=== PATIENT | male | born 1955 | race Caucasian/White ===

== ENCOUNTER 2022-10-26 15:58 | Inpatient (IN) | payer OTHER ==
[~2022-10-26] VITALS: Ht 167.6 cm; Wt 74.4 kg
[~2022-10-26 15:58] MED LIST: ASPI-1822 PO; ATOR20TA PO; FAMO-90 PO; LOSA100T2 PO
[2022-10-26 15:59] VITALS: BP 171/105
--- NOTE | 2022-10-26 16:08 | NUR ---
PT AMB TO BED 4.
[2022-10-26 16:31] LABS: APPEARANCE,URINE CLEAR (CLEAR); BILIRUBIN,URINE NEGATIVE (NEGATIVE); BLOOD, URINE 3+ (NEGATIVE); COLOR,URINE YELLOW (YELLOW); LEUKOCYTE ESTERASE ,URINE 1+ (NEGATIVE); NITRITE, URINE NEGATIVE (NEGATIVE); UGLUCOSE 3+ (NEGATIVE)
[2022-10-26] MEDS ORDERED: KETOROLAC 30 MG/ML VIAL IVP ONE (16:35)
[2022-10-26] MEDS ORDERED: NACL 0.9% 1,000 ML IV ONE (16:35)
--- NOTE | 2022-10-26 16:55 | NUR ---
pt to ct
--- NOTE | 2022-10-26 16:55 | NUR ---
medicated for left lower back pain, o2 sat 98 ra, sr up times 2
[2022-10-26 16:57] LABS: HEMATOCRIT 40.1 % (36-52); HEMOGLOBIN 13.5 g/dL (12.0-18.0); MEAN CORPUSCULAR HEMOGLOBIN 29 pg (27-31); MEAN CORPUSCULAR HGB CONC 34 g/dL (33-37); MEAN CORPUSCULAR VOLUME 85.9 fL (80-94); PLATELET COUNT (AUTO) 202 K/uL (140-450); RED BLOOD CELL COUNT(AUTO) 4.67 MIL/uL (4.20-6.10); RED CELL DISTRIBUTION WIDTH 13.4 % (11.6-13.7); WHITE BLOOD COUNT (AUTO) 13.5 K/uL (4.8-10.8)
[2022-10-26 17:03] LABS: RBC,URINE >100 /HPF (0-5); WBC,URINE 80-100 /HPF (0-5)
[2022-10-26 17:04] LABS: TRICHOMONAS,URINE None Seen /HPF (None Seen); YEAST,URINE None Seen /HPF (None Seen)
[2022-10-26 17:11] LABS: ALBUMIN 3.9 g/dL (3.4-5.0); ANION GAP 10.7 (8-16); CARBON DIOXIDE 28.3 mmol/L (21-32); CREATININE 2.4 mg/dL (0.6-1.3); TOTAL BILIRUBIN 0.3 mg/dL (0.0-1.0)
[2022-10-26] MEDS ORDERED: ATOR40TA PO (17:39)
[2022-10-26] MEDS ORDERED: TAMS0.4C96 PO (17:39)
[2022-10-26] MEDS ORDERED: FENO145T PO (17:40)
[2022-10-26] MEDS ORDERED: ERGO-30 PO (17:43)
[2022-10-26] MEDS ORDERED: SYN.05 PO (17:43)
[2022-10-26] MEDS ORDERED: DOXA2TAB1 PO (17:43)
[2022-10-26] MEDS ORDERED: GLIM2TAB PO ×2 (17:45→17:46)
[2022-10-26] MEDS ORDERED: cefTRIAXone 1,000 MG VIAL ONE (17:48)
[2022-10-26 18:15] LABS: BASOPHILS % (MANUAL) 0 % (0-2); EOSINOPHILS % (MANUAL) 2 % (0-4); LYMPHOCYTES % (MANUAL) 7 % (20-46)
[2022-10-26 18:16] LABS: MONOCYTES % (MANUAL) 3 % (5-12)
[2022-10-26] MEDS ORDERED: ONDANSETRON 4 MG/2 ML VIAL IVP PRN (19:05)
[2022-10-26] MEDS ORDERED: ACETAMINOPHEN 325 MG TAB PO PRN (19:05)
[2022-10-26] MEDS ORDERED: LORazepam 1 MG TAB PO PRN (19:05)
[2022-10-26] MEDS ORDERED: ZOLPIDEM 5 MG TAB PO PRN (19:05)
[2022-10-26] MEDS: NACL 0.9% 1,000 ML IV SCH (19:45)
--- NOTE | 2022-10-26 19:54 | NUR ---
PT IS RESTING IN BED . TELE HOLD WITH BED ASSIG PENDING TO REPORT OFF TO [facility] NURSE FOR TRANSFER. PT IS ON BEDSIDE NATIONAL STORMWATER LEADER A&OX4. DENIES PAIN CP OR SOB. HOB IS ELEVATED RESP EVEN AND UNLABORED. VS WNL. BED AT LOWEST POSITION SIDE RAILS UP X2
--- NOTE | 2022-10-26 20:20 | NUR ---
Patient will be admitted to care of DR GRAY. Admited toTELE. Will go to [id number]. Belongings list completed. Report to CHASTITY MICHELLE.
[2022-10-26 20:38] VITALS: BP 155/77
--- NOTE | 2022-10-26 21:16 | NUR ---
The patient's care was reviewed and supervised by Piedad Huerta RN, RN.
[2022-10-27] MEDS: MORPHINE SULFATE 4 MG/ML SYR IVP PRN ×2 (01:49→19:54)
[2022-10-27] MEDS: NACL 0.9% 1,000 ML IV SCH ×3 (02:45→23:37)
[2022-10-27 04:19] VITALS: BP 136/84
--- NOTE | 2022-10-27 04:39 | NUR ---
rn notes patient remains on room air, no sob noted, patient states that pain is under control with morphine at this time. Admitted for obstructed kidney stone. NPO at this time, 125 mL per hour NS is running. Rocephin and toradol given in the ER, morphine 4mg given one time for pain in the floor. Pending admission orders at this time.
[2022-10-27 06:23] LABS: ANION GAP 12.8 (8-16); CARBON DIOXIDE 26.3 mmol/L (21-32); CREATININE 2.7 mg/dL (0.6-1.3); POTASSIUM 5.1 mmol/L (3.5-5.1)
[2022-10-27 06:58] LABS: BASOPHILS % (AUTO) 0.3 % (0.0-2.0); EOSINOPHILS # (AUTO) 0.1 K/uL (0-0.4); EOSINOPHILS % (AUTO) 0.9 % (0.0-4.0); HEMATOCRIT 38.1 % (36-52); HEMOGLOBIN 12.8 g/dL (12.0-18.0); LYMPHOCYTES # (AUTO) 1.6 K/uL (2.0-11.5); LYMPHOCYTES % (AUTO) 11.4 % (20.5-51.1); MEAN CORPUSCULAR HEMOGLOBIN 29 pg (27-31); MEAN CORPUSCULAR HGB CONC 34 g/dL (33-37); MEAN CORPUSCULAR VOLUME 86.3 fL (80-94); MONOCYTES # (AUTO) 1.2 K/uL (0.8-1.0); MONOCYTES % (AUTO) 8.6 % (1.7-9.3); NEUTROPHILS % (AUTO) 78.8 % (42.2-75.2); PLATELET COUNT (AUTO) 191 K/uL (140-450); RED BLOOD CELL COUNT(AUTO) 4.42 MIL/uL (4.20-6.10); RED CELL DISTRIBUTION WIDTH 13.5 % (11.6-13.7); WHITE BLOOD COUNT (AUTO) 13.9 K/uL (4.8-10.8)
--- NOTE | 2022-10-27 07:20 | NUR ---
RECEIVED REPORT FROM NIGHTSOKFT NURSE CHASTITY FOR CONTINUITY OF CARE. PT IN STABLE CONDITION.
[2022-10-27 08:00] VITALS: BP 167/90
[2022-10-27] MEDS: DOCUSATE SODIUM 100 MG GELCAP PO SCH (08:20)
--- NOTE | 2022-10-27 08:36 | NUR ---
NURSING AIDE FOR DR. ORTIZ CALLED, STATED SHE SPOKE WITH THE PT AND HIS FAMILY, AND HE IS CLEARED FOR DISCHARGE, NO SURGICAL INTERVENTION NEEDED AND PRESCRIBED FLOMAX. PT IS TO SEE HIS RADIATION ONCOLOGY NURSE OUTPATIENT. Addendum: 10/27/22 at 4886 by Ruiz Ferrell RN NOTIFIED DR. FELICIANO OF UPDATE.
--- NOTE | 2022-10-27 09:25 | NUR ---
NOTIFIED DR. FELICIANO ABOUT PT'S SBP 167. NEW ORDER FOR HYDRALAZINE PO ORDERED.
[2022-10-27] MEDS: HYDROcodone/APAP 5/325 MG 1 TAB TAB PO PRN ×2 (10:41→17:29)
--- NOTE | 2022-10-27 10:41 | NUR ---
MEDICATED PT WITH PRN NORCO FOR LEFT FLANK PAIN 02/01.
--- NOTE | 2022-10-27 10:50 | NUR ---
DR. BARAKAT IN TO SEE PT. HE RECOMMENDED KEEPING PT FOR OBSERVATION UNTIL CREATININE LEVEL DECREASES. CHANGED FLUIDS NS AT 80ML/HR. HE STATED HE WILL UPDATE DR. FELICIANO. PT NOW ON RENAL DIET. Addendum: 10/27/22 at 1111 by Ruiz Ferrell RN PT NOW ON LOW SODIUM CCHO DIET.
[2022-10-27] MEDS ORDERED: DEXTROSE 50% 50 ML SYR IVP PRN (11:15)
[2022-10-27] MEDS: BLOOD GLUCOSE MONITORING 1 DEV DEV FS SCH ×3 (11:30→20:56)
[2022-10-27 12:00] VITALS: BP 155/92
[2022-10-27] MEDS: hydrALAZINE 25 MG TAB PO SCH ×2 (12:34→16:45)
[2022-10-27 16:00] VITALS: BP 156/80
--- NOTE | 2022-10-27 16:01 | NUR ---
PATIENT HAS BEEN SCREENED AND CATEGORIZED MODERATE NUTRITION RISK. PATIENT WILL BE SEEN WITHIN 3-5 DAYS OF ADMISSION. REVIEWED BY RONALD MIDDLETON RD
--- NOTE | 2022-10-27 16:30 | NUR ---
SMALL WHITE STONE NOTED IN STRAINER OF URINAL, URINE WAS DARK YELLOW/BROWN IN COLOR. PT DENIED PAINFUL URINATION. NOTIFIED DR. BARAKAT.
--- NOTE | 2022-10-27 16:34 | NUR ---
PER DR. BARAKAT, RENAL STONE POSSIBLY PASSED, POSSIBLE CLEARANCE FOR DISCHARGE TOMORROW.
--- NOTE | 2022-10-27 17:29 | NUR ---
PT ENDORSED LEFT FLANK PAIN 02/01. MEDICATED WITH PRN NORCO.
--- NOTE | 2022-10-27 19:09 | NUR ---
ENDORSED PT TO NIGHTSHIFT NURSE MICHELLE FOR CONTINUITY OF CARE. PT IN STABLE CONDITION.
--- NOTE | 2022-10-27 19:25 | NUR ---
RECEIVED PT ON BED, AAOX4, ABLE TO MAKE NEEDS KNOWN, COMPLAINING OF BACK PAIN, WILL MEDICATE PRN, IVF INFUSING WELL, PLAN OF CARE DISCUSSED, CALL LIGHT WITHIN REACH.
[2022-10-27 20:00] VITALS: BP 148/85
[2022-10-27] MEDS: cefTRIAXone 2,000 MG in DEXTROSE 5% 100 ML IV SCH (20:53)
[2022-10-28] VITALS: BP 116/96
--- NOTE | 2022-10-28 02:30 | NUR ---
PT AMBULATED TO TOILET WITH STEADY GAIT, VOIDED FREELY WITH SHAUN COLORED URINE, URINE STRAINED WITH VERY FINE SEDIMENTS BUT NO STONE NOTED, DENIES ANY PAIN, CONTINUE IVF WITH NS AT 80ML/H, MONITORED CLOSELY.
[2022-10-28 04:00] VITALS: BP 148/87
[2022-10-28] MEDS: LEVOTHYROXINE 0.05 MG TAB PO SCH (05:57)
[2022-10-28] MEDS: NACL 0.9% 1,000 ML IV SCH ×2 (06:00→12:07)
[2022-10-28] MEDS: GLIMEPIRIDE 2 MG TAB PO SCH (06:00)
--- NOTE | 2022-10-28 06:00 | NUR ---
BLOOD SUGAR CHECKED WITH 60 RESULT, ASYMPTOMATIC, AAOX4, ORANGE JUICE X2 AND CRACKERS PROVIDED, DUE AMARYL HELD DUE DECREASE GLUCOSE, DENIES ANY PAIN, IVF INFUSING WELL.
[2022-10-28 06:26] LABS: BASOPHILS # (AUTO) 0.1 K/uL (0.00-0.22); BASOPHILS % (AUTO) 0.5 % (0.0-2.0); EOSINOPHILS # (AUTO) 0.2 K/uL (0-0.4); EOSINOPHILS % (AUTO) 1.5 % (0.0-4.0); HEMATOCRIT 38.1 % (36-52); HEMOGLOBIN 12.5 g/dL (12.0-18.0); LYMPHOCYTES % (AUTO) 13.2 % (20.5-51.1); MEAN CORPUSCULAR HEMOGLOBIN 29 pg (27-31); MEAN CORPUSCULAR HGB CONC 33 g/dL (33-37); MEAN CORPUSCULAR VOLUME 88.4 fL (80-94); MONOCYTES # (AUTO) 1.5 K/uL (0.8-1.0); MONOCYTES % (AUTO) 9.9 % (1.7-9.3); NEUTROPHILS # (AUTO) 11.2 K/uL (1.8-7.7); NEUTROPHILS % (AUTO) 74.9 % (42.2-75.2); PLATELET COUNT (AUTO) 180 K/uL (140-450); RED BLOOD CELL COUNT(AUTO) 4.31 MIL/uL (4.20-6.10); RED CELL DISTRIBUTION WIDTH 13.5 % (11.6-13.7); WHITE BLOOD COUNT (AUTO) 14.9 K/uL (4.8-10.8)
--- NOTE | 2022-10-28 06:35 | NUR ---
RECHECKED BLOOD SUGAR WITH 96 RESULT.
[2022-10-28] MEDS: BLOOD GLUCOSE MONITORING 1 DEV DEV FS SCH ×4 (06:38→21:07)
[2022-10-28 06:40] LABS: ANION GAP 12.6 (8-16); CARBON DIOXIDE 23.2 mmol/L (21-32); POTASSIUM 4.8 mmol/L (3.5-5.1)
--- NOTE | 2022-10-28 07:30 | NUR ---
PT AWAKE, NO SIGNS OF DISTRESS, REPORT GIVEN TO RN SARMAD FOR CONTINUITY OF CARE.
--- NOTE | 2022-10-28 07:31 | NUR ---
RECEIVED PATIENT ROM CONFECTIONERY COOKER NURSE.PATIENT ALERT AND ORIENTED. VERBALLY RESPONSES. ALL SAFETY MEASURES IN PLACE.POC DISCUSSED WITH THE CONFECTIONERY COOKER NURSE. CALL LIGHT WITHIN REACH. WILL CONTINUE TO MONITOR.
[2022-10-28 08:00] VITALS: BP 122/78
[2022-10-28] MEDS: DOCUSATE SODIUM 100 MG GELCAP PO SCH (08:59)
[2022-10-28] MEDS: ASPIRIN 81 MG TAB.CHEW PO SCH (08:59)
[2022-10-28] MEDS: hydrALAZINE 25 MG TAB PO SCH ×3 (08:59→17:32)
[2022-10-28] MEDS: TAMSULOSIN 0.4 MG CAP PO SCH (08:59)
[2022-10-28] MEDS: DOXAZOSIN 2 MG TAB PO SCH (08:59)
[2022-10-28] MEDS: ATORVASTATIN 20 MG TAB PO SCH (08:59)
[2022-10-28] MEDS ORDERED: LOSARTAN 50 MG TAB PO SCH (09:00)
[2022-10-28 12:00] VITALS: BP 144/89
--- NOTE | 2022-10-28 14:00 | NUR ---
DR ISABEL at bedside explaining poc to the patient and family. scheduled for OR procedure tomorrow. advised to reduce ns flow rate to 30 ml/hr.
[2022-10-28 16:00] VITALS: BP 159/84
[2022-10-28] MEDS: MORPHINE SULFATE 4 MG/ML SYR IVP PRN (16:28)
--- NOTE | 2022-10-28 16:28 | NUR ---
patient complains of backpain with intensity 7,will medicate with prn pain med.
--- NOTE | 2022-10-28 16:30 | NUR ---
DC PLANNING ASSESSMENT COMPLETE PLEASE REFER TO ASSESSMENT FOR DETAILS PT AND PTS DAUGHTER REPORT TENTATIVE DC PLAN IS FOR PT TO RETURN HOME WITH DAUGHTER PROVIDING TRANSPORTATION, WHEN MEDICALLY STABLE. Addendum: 10/29/22 at 0916 by Arian Leyva SS Amended: Links added.
--- NOTE | 2022-10-28 19:30 | NUR ---
endorsed the patient to shift supervisor nurse for the continuity of care.
[2022-10-28 20:00] VITALS: BP 159/98
[2022-10-28] MEDS: cefTRIAXone 2,000 MG in DEXTROSE 5% 100 ML IV SCH (21:08)
[2022-10-28] MEDS: HYDROcodone/APAP 5/325 MG 1 TAB TAB PO PRN (21:29)
[2022-10-29] VITALS: BP 155/98
[2022-10-29 04:00] VITALS: BP 167/97
--- NOTE | 2022-10-29 04:25 | NUR ---
PATIENT BP-157/97 P-87. PLACED A CALL TO DR WERNER. CALLED BACK AT 0455 WITH ORDERS NOTED AND CARRIED OUT.
[2022-10-29] MEDS ORDERED: hydrALAZINE 25 MG TAB PO PRN ×2 (05:00→10:00)
[2022-10-29] MEDS: LEVOTHYROXINE 0.05 MG TAB PO SCH (05:58)
[2022-10-29] MEDS: GLIMEPIRIDE 2 MG TAB PO SCH ×2 (05:58→06:11)
--- NOTE | 2022-10-29 06:11 | NUR ---
GLIMEPIRIDE NOT ADMINISTERED BS-91. PATIENT IS NPO.
[2022-10-29 06:16] LABS: BASOPHILS % (AUTO) 0.2 % (0.0-2.0); EOSINOPHILS # (AUTO) 0.3 K/uL (0-0.4); EOSINOPHILS % (AUTO) 1.8 % (0.0-4.0); HEMATOCRIT 39.7 % (36-52); LYMPHOCYTES % (AUTO) 6.9 % (20.5-51.1); MEAN CORPUSCULAR HEMOGLOBIN 29 pg (27-31); MEAN CORPUSCULAR HGB CONC 33 g/dL (33-37); MEAN CORPUSCULAR VOLUME 87.8 fL (80-94); MONOCYTES # (AUTO) 1.6 K/uL (0.8-1.0); MONOCYTES % (AUTO) 10.7 % (1.7-9.3); NEUTROPHILS # (AUTO) 12.1 K/uL (1.8-7.7); NEUTROPHILS % (AUTO) 80.4 % (42.2-75.2); PLATELET COUNT (AUTO) 169 K/uL (140-450); RED BLOOD CELL COUNT(AUTO) 4.52 MIL/uL (4.20-6.10); RED CELL DISTRIBUTION WIDTH 13.2 % (11.6-13.7)
--- NOTE | 2022-10-29 06:22 | NUR ---
PATIENT AWAKE ALERT VERBALLY RESPONSIVE. NO SOB NOTED ON 2L NC. REMINDED PATIENT TO BE NPO EXCEPT MEDS. IVF NS INFUSING 30 ML/HR TO RAC. PATIENT IS AMBULATORY.
[2022-10-29] MEDS: BLOOD GLUCOSE MONITORING 1 DEV DEV FS SCH ×4 (06:29→20:47)
[2022-10-29 06:41] LABS: ANION GAP 16.9 (8-16); CARBON DIOXIDE 20.9 mmol/L (21-32); POTASSIUM 4.8 mmol/L (3.5-5.1)
--- NOTE | 2022-10-29 07:22 | NUR ---
GAVE REPORT TO DAY SHIFT NURSE FOR CONTINUITY OF CARE.
--- NOTE | 2022-10-29 07:23 | NUR ---
RECEIVED PATIENT FROM COOPERATIVE EXTENSION AGENT NURSE.PATIENT SLEEPING IN BED.CHEST RISING AND FALLING EVENLY. NO OTHER SIGNS OF DISTRESS NOTED.CALL LIGHT WITHIN REACH.WILL CONTINUE TO MONITOR.
[2022-10-29] MEDS: hydrALAZINE 25 MG TAB PO SCH ×3 (07:45→17:00)
[2022-10-29 08:00] VITALS: BP 184/110
[2022-10-29] MEDS: MORPHINE SULFATE 4 MG/ML SYR IVP PRN (08:20)
[2022-10-29] MEDS: ATORVASTATIN 20 MG TAB PO SCH (08:26)
[2022-10-29] MEDS: ASPIRIN 81 MG TAB.CHEW PO SCH (08:26)
[2022-10-29] MEDS: DOXAZOSIN 2 MG TAB PO SCH (08:27)
[2022-10-29] MEDS: DOCUSATE SODIUM 100 MG GELCAP PO SCH (08:28)
[2022-10-29] MEDS: TAMSULOSIN 0.4 MG CAP PO SCH (08:28)
[2022-10-29 08:58] LABS: CREATININE 5.6 mg/dL (0.6-1.3)
[2022-10-29] MEDS ORDERED: hydrALAZINE 20 MG/ML VIAL IVP PRN (10:50)
[2022-10-29 12:00] VITALS: BP 159/82
[2022-10-29] MEDS: NACL 0.9% 1,000 ML IV SCH (12:14)
[2022-10-29 16:00] VITALS: BP 142/82
--- NOTE | 2022-10-29 16:19 | NUR ---
PATIENT LEFT THE UNIT TO OR FOR CYSTOSCOPY AND LEFT STENT PLACEMENT.ON O2 2L.IV FLUIDS NS 30 ml per hour.
[2022-10-29] MEDS ORDERED: fentaNYL citrate 0.05 MG/ML VIAL ONE (17:13)
[2022-10-29] MEDS ORDERED: MIDAZOLAM 2 MG/2 ML VIAL ONE (17:33)
[2022-10-29] MEDS ORDERED: ceFAZolin 1,000 MG VIAL ONE (17:43)
[2022-10-29] MEDS ORDERED: ePHEDrine 50 MG/ML VIAL ONE (17:56)
--- NOTE | 2022-10-29 18:39 | NUR ---
RECEIVED PATIENT FROM OR NURSE, PATIENT ALERT ORIENTED. ON 2L NC.FULLER DRAINING MILD TINGED URINE. VS BP 134/73, NJ 125, 99% O2.RR 20.NO OTHER SIGNS OF DISTRESS NOTED.RESUMED CARDIAC DIET.
--- NOTE | 2022-10-29 19:27 | NUR ---
ENDORSED THE PATIENT TO LOOPING INSPECTOR NURSE FOR CONTINUITY OF CARE.
--- NOTE | 2022-10-29 19:30 | NUR ---
RECEIVED PT FROM AM NURSE FOR CONTINUITY OF CARE. PT IS STABLE
[2022-10-29 20:00] VITALS: BP 157/91
[2022-10-29] MEDS: cefTRIAXone 2,000 MG in DEXTROSE 5% 100 ML IV SCH (20:47)
--- NOTE | 2022-10-29 22:00 | NUR ---
PATIENT HEART RATE 120-135. NOTIFIED DOCTOR ISAAC. ORDERED BOLUS 500 CC OF NS
[2022-10-29] MEDS: NACL 0.9% 500 ML IV SCH (22:24)
--- NOTE | 2022-10-29 23:00 | NUR ---
HEART RATE WE3NT DOWN TO 120. MD NOTIFIED. MD ORDERED METOPROLOL TARTRATE 25 MG PO BID, NOTED AND CARREIED OUT
[2022-10-29] MEDS ORDERED: METOPROLOL 25 MG TAB PO SCH (23:45)
[2022-10-30] VITALS: BP 139/86
[2022-10-30] MEDS: NACL 0.9% 500 ML IV SCH ×6 (00:26→06:12)
--- NOTE | 2022-10-30 03:00 | NUR ---
PATIENT STATED HE FEELS MUCH BETTER AFTER TAKING THE METOPROLOL. HEART RATE 90-105
[2022-10-30 04:00] VITALS: BP 136/80
[2022-10-30 06:33] LABS: BASOPHILS % (AUTO) 0.2 % (0.0-2.0); EOSINOPHILS # (AUTO) 0.1 K/uL (0-0.4); EOSINOPHILS % (AUTO) 0.5 % (0.0-4.0); HEMATOCRIT 36.1 % (36-52); HEMOGLOBIN 12.1 g/dL (12.0-18.0); LYMPHOCYTES # (AUTO) 0.6 K/uL (2.0-11.5); LYMPHOCYTES % (AUTO) 4.5 % (20.5-51.1); MEAN CORPUSCULAR HEMOGLOBIN 29 pg (27-31); MEAN CORPUSCULAR HGB CONC 33 g/dL (33-37); MEAN CORPUSCULAR VOLUME 87.3 fL (80-94); MONOCYTES # (AUTO) 1.1 K/uL (0.8-1.0); MONOCYTES % (AUTO) 8.8 % (1.7-9.3); PLATELET COUNT (AUTO) 190 K/uL (140-450); RED BLOOD CELL COUNT(AUTO) 4.14 MIL/uL (4.20-6.10); RED CELL DISTRIBUTION WIDTH 13.3 % (11.6-13.7); WHITE BLOOD COUNT (AUTO) 12.7 K/uL (4.8-10.8)
[2022-10-30] MEDS: GLIMEPIRIDE 2 MG TAB PO SCH (06:37)
[2022-10-30] MEDS: LEVOTHYROXINE 0.05 MG TAB PO SCH (06:38)
[2022-10-30] MEDS: BLOOD GLUCOSE MONITORING 1 DEV DEV FS SCH ×4 (06:39→20:40)
--- NOTE | 2022-10-30 07:49 | NUR ---
GOT REPORT FROM THE NIGHT NURSE ,FULLER CATH TO THE GRAVITY AND BLOODY, DISCUSSED POC WITH PT LUCIANA
[2022-10-30 08:00] VITALS: BP_SYST 140; BP_SYST 153; BP_DIAS 85; BP_DIAS 89
[2022-10-30 08:07] LABS: ANION GAP 16.3 (8-16); CARBON DIOXIDE 20.7 mmol/L (21-32)
[2022-10-30 08:35] LABS: CREATININE 4.1 mg/dL (0.6-1.3)
[2022-10-30] MEDS: ATORVASTATIN 20 MG TAB PO SCH (09:00)
[2022-10-30] MEDS: TAMSULOSIN 0.4 MG CAP PO SCH (09:01)
[2022-10-30] MEDS: hydrALAZINE 25 MG TAB PO SCH ×3 (09:01→17:32)
[2022-10-30] MEDS: DOCUSATE SODIUM 100 MG GELCAP PO SCH (09:01)
[2022-10-30] MEDS: METOPROLOL 25 MG TAB PO SCH ×2 (09:01→20:41)
[2022-10-30] MEDS: DOXAZOSIN 2 MG TAB PO SCH (09:02)
[2022-10-30] MEDS: ASPIRIN 81 MG TAB.CHEW PO SCH (09:02)
--- NOTE | 2022-10-30 10:50 | NUR ---
IRRIGATED FULLER WITH 100CC WITH NS UNTIL IT IS CLEAR.[id number]
[2022-10-30 12:00] VITALS: BP 140/85
[2022-10-30] MEDS: NACL 0.9% 1,000 ML IV SCH (12:33)
--- NOTE | 2022-10-30 13:20 | NUR ---
GIVEN ATIVAN C\O PT ANXIETY.
--- NOTE | 2022-10-30 14:44 | NUR ---
10/30/22 RD INITIAL ASSESSMENT COMPLETED PLEASE REFER TO NUTRITION ASSESSMENT UNDER CARE ACTIVITY FOR ESTIMATED NUTRITIONAL NEEDS. 1. RECOMMEND ADDING CCHO 60 GM TO CARDIAC DIET TOLERATED 2. PROVIDED NUTRITION EDUCATION AND HANDOUTS FOR DM 3. MONITOR GI SYMPTOMS, PO INTAKE, AND NUTRITION RELATED LAB VALUES 4. RD TO FOLLOW-UP 7 DAYS, LOW RISK REVIEWED BY RONALD MIDDLETON RD
--- NOTE | 2022-10-30 14:44 | NUR ---
INSERTED 22G IV ON THE LEFT AC C\0 THE RIGHT HAND IV INFILTRATED.ALSO THE PATIENT SURINDERHIER SAID THAT HE PASSED GAS AND THE URINE OUTPUT OF 900 HUNDRED THAT I EMPTIED WAS ONLY URINE, PT SAID THE NIGHT NURSE EMPTED AND THE URINE WITH IRRIGATION [id number]
[2022-10-30] MEDS ORDERED: FUROSEMIDE 20 MG/2 ML VIAL IVP SCH (15:00)
[2022-10-30 16:00] VITALS: BP 145/90
--- NOTE | 2022-10-30 19:20 | NUR ---
RECEIVED PATIENT LYING ON THE BED, ON O2 @3LPM NC, NO SIGNS OF DISTRESS NOTED, NO SIGNS OF PAIN NOTED. FAMILY AT BEDSIDE. CALL LIGHT WITHIN REACH.
[2022-10-30 20:00] VITALS: BP 151/86
[2022-10-30] MEDS: cefTRIAXone 2,000 MG in DEXTROSE 5% 100 ML IV SCH (20:44)
[2022-10-30] MEDS: INSULIN LISPRO SLIDING SCALE 100 UNITS/ML VIAL SUBQ PRN (20:49)
--- NOTE | 2022-10-30 20:50 | NUR ---
SCHEDULED MEDICATIONS GIVEN ORDERED. BS 217MG/DL, INSULIN GIVEN PER SLIDING SCALE. ALL SAFETY MEASURES MAINTAINED.
[2022-10-31] VITALS (7 sets, daily range): BP systolic 93–150; BP diastolic 61–86
--- NOTE | 2022-10-31 00:20 | NUR ---
VITALS T 97.5, P 90, BP 118/67, RESP 20 AND SAT 98% ON 3LPM NC. CALL LIGHT WITHIN REACH, BED IN LOW AND LOCKED POSITION.
--- NOTE | 2022-10-31 04:05 | NUR ---
ASSISTED PATIENT TO THE RESTROOM, PATIENT HAD LARGE BM. LINENS CHANGED, GIVEN WARM BLANKET. ALL SAFETY MEASURES IN PLACE.
[2022-10-31] MEDS: LEVOTHYROXINE 0.05 MG TAB PO SCH (05:48)
[2022-10-31] MEDS: GLIMEPIRIDE 2 MG TAB PO SCH (06:06)
[2022-10-31 06:10] LABS: BASOPHILS # (AUTO) 0.1 K/uL (0.00-0.22); BASOPHILS % (AUTO) 0.7 % (0.0-2.0); EOSINOPHILS # (AUTO) 0.2 K/uL (0-0.4); EOSINOPHILS % (AUTO) 1.4 % (0.0-4.0); HEMATOCRIT 33.8 % (36-52); HEMOGLOBIN 11.4 g/dL (12.0-18.0); LYMPHOCYTES # (AUTO) 0.7 K/uL (2.0-11.5); LYMPHOCYTES % (AUTO) 4.6 % (20.5-51.1); MEAN CORPUSCULAR HEMOGLOBIN 30 pg (27-31); MEAN CORPUSCULAR HGB CONC 34 g/dL (33-37); MEAN CORPUSCULAR VOLUME 87.6 fL (80-94); MONOCYTES # (AUTO) 1.6 K/uL (0.8-1.0); MONOCYTES % (AUTO) 10.4 % (1.7-9.3); NEUTROPHILS # (AUTO) 12.7 K/uL (1.8-7.7); NEUTROPHILS % (AUTO) 82.9 % (42.2-75.2); PLATELET COUNT (AUTO) 247 K/uL (140-450); RED BLOOD CELL COUNT(AUTO) 3.86 MIL/uL (4.20-6.10); RED CELL DISTRIBUTION WIDTH 13.1 % (11.6-13.7); WHITE BLOOD COUNT (AUTO) 15.3 K/uL (4.8-10.8)
[2022-10-31 06:22] LABS: ANION GAP 16.5 (8-16); CARBON DIOXIDE 21.9 mmol/L (21-32); CREATININE 2.3 mg/dL (0.6-1.3); POTASSIUM 4.4 mmol/L (3.5-5.1)
[2022-10-31] MEDS: BLOOD GLUCOSE MONITORING 1 DEV DEV FS SCH ×4 (06:41→20:29)
--- NOTE | 2022-10-31 07:28 | NUR ---
ENDORSED PATIENT TO DAY NURSE FOR CONTINUITY OF CARE. NEEDS MET THROUGHOUT THE SHIFT. PATIENT IN STABLE CONDITION.
[2022-10-31] MEDS: TAMSULOSIN 0.4 MG CAP PO SCH (08:27)
[2022-10-31] MEDS: ASPIRIN 81 MG TAB.CHEW PO SCH (08:29)
[2022-10-31] MEDS: ATORVASTATIN 20 MG TAB PO SCH (08:29)
[2022-10-31] MEDS: hydrALAZINE 25 MG TAB PO SCH ×3 (08:30→17:11)
[2022-10-31] MEDS: DOXAZOSIN 2 MG TAB PO SCH (08:30)
[2022-10-31] MEDS: DOCUSATE SODIUM 100 MG GELCAP PO SCH (08:31)
[2022-10-31] MEDS: METOPROLOL 25 MG TAB PO SCH ×2 (08:31→20:14)
--- NOTE | 2022-10-31 09:18 | NUR ---
SATURATION 98% ON SUPPLEMENTAL OXYGEN AT 3 LPM VIA NC TITRATED FIO2 TO [address]/RN NOTIFIED
[2022-10-31] MEDS ORDERED: MAG SULF 2000 MG/WATER PREMIX 50 ML IV SCH (11:45)
[2022-10-31] MEDS ORDERED: FUROSEMIDE 20 MG/2 ML VIAL IVP SCH (12:00)
[2022-10-31] MEDS: NACL 0.9% 1,000 ML IV SCH (12:07)
--- NOTE | 2022-10-31 19:20 | NUR ---
PATIENT LYING ON THE BED, ON O2 @2LPM NC, NO SOB NOTED, NO SIGNS OF PAIN/DISCOMFORT NOTED, FAMILY AT BEDSIDE. CALL LIGHT WITHIN REACH.
[2022-10-31] MEDS: cefTRIAXone 2,000 MG in DEXTROSE 5% 100 ML IV SCH (20:30)
--- NOTE | 2022-10-31 20:30 | NUR ---
SCHEDULED MEDICATIONS GIVEN ORDERED. WILL CONTINUE TO MONITOR THE PATIENT. CALL LIGHT WITHIN REACH.
[2022-10-31] MEDS: INSULIN LISPRO SLIDING SCALE 100 UNITS/ML VIAL SUBQ PRN (20:33)
[2022-11-01] VITALS: BP 134/82
[2022-11-01 04:00] VITALS: BP 142/83
[2022-11-01] MEDS: LEVOTHYROXINE 0.05 MG TAB PO SCH (05:38)
[2022-11-01] MEDS: GLIMEPIRIDE 2 MG TAB PO SCH (05:38)
[2022-11-01 05:56] LABS: BASOPHILS % (AUTO) 0.3 % (0.0-2.0); EOSINOPHILS # (AUTO) 0.5 K/uL (0-0.4); EOSINOPHILS % (AUTO) 3.6 % (0.0-4.0); HEMATOCRIT 32.3 % (36-52); LYMPHOCYTES # (AUTO) 1.1 K/uL (2.0-11.5); LYMPHOCYTES % (AUTO) 8.3 % (20.5-51.1); MEAN CORPUSCULAR HEMOGLOBIN 29 pg (27-31); MEAN CORPUSCULAR HGB CONC 34 g/dL (33-37); MEAN CORPUSCULAR VOLUME 84.9 fL (80-94); MONOCYTES # (AUTO) 1.6 K/uL (0.8-1.0); MONOCYTES % (AUTO) 11.9 % (1.7-9.3); NEUTROPHILS # (AUTO) 10.3 K/uL (1.8-7.7); NEUTROPHILS % (AUTO) 75.9 % (42.2-75.2); PLATELET COUNT (AUTO) 252 K/uL (140-450); WHITE BLOOD COUNT (AUTO) 13.6 K/uL (4.8-10.8)
--- NOTE | 2022-11-01 06:30 | NUR ---
BLOOD SUGAR 113 MG/DL, NO INSULIN COVERAGE NEEDED.
[2022-11-01] MEDS: BLOOD GLUCOSE MONITORING 1 DEV DEV FS SCH ×3 (06:38→16:28)
[2022-11-01 06:49] LABS: ANION GAP 13.2 (8-16); CARBON DIOXIDE 25.8 mmol/L (21-32); CREATININE 1.7 mg/dL (0.6-1.3)
[2022-11-01 06:57] LABS: MAGNESIUM 1.8 mg/dL (1.8-2.4); PHOSPHORUS 2.8 mg/dL (2.5-4.9)
--- NOTE | 2022-11-01 07:06 | NUR ---
ENDORSED PATIENT TO DAY NURSE FOR CONTINUITY OF CARE. PATIENT IN STABLE CONDITION.
[2022-11-01 08:00] VITALS: BP 160/86
[2022-11-01] MEDS: METOPROLOL 25 MG TAB PO SCH (09:53)
[2022-11-01] MEDS: ASPIRIN 81 MG TAB.CHEW PO SCH (09:53)
[2022-11-01] MEDS: ATORVASTATIN 20 MG TAB PO SCH (09:54)
[2022-11-01] MEDS: DOXAZOSIN 2 MG TAB PO SCH (09:54)
[2022-11-01] MEDS: DOCUSATE SODIUM 100 MG GELCAP PO SCH (09:54)
[2022-11-01] MEDS: hydrALAZINE 25 MG TAB PO SCH ×3 (09:55→16:52)
[2022-11-01] MEDS: TAMSULOSIN 0.4 MG CAP PO SCH (09:56)
[2022-11-01] MEDS: NACL 0.9% 1,000 ML IV SCH (11:32)
[2022-11-01 12:00] VITALS: BP 135/73
[2022-11-01] MEDS ORDERED: CEPH-588 PO (15:17)
[2022-11-01 16:00] VITALS: BP 141/76
--- NOTE | 2022-11-01 18:28 | NUR ---
Discharge instructions explained to pt and daughter, verbalized understanding. IV removed, belongings returned.
[2022-11-01] MEDS ORDERED: cefTRIAXone 2,000 MG in DEXTROSE 5% 100 ML IV SCH (21:00)
--- NOTE | 2022-11-04 16:13 | NUR ---
MUSHTAQ REYES CALLED DR REILLY'S OFFICE LOCATED AT [id number] [facility] [address] [place] [facility] [id number]. SPOKE WITH MARIA DOLORES WHO INFORMED ME PT HAD YET TO MAKE AN APPOINTMENT SO I WAS ABLE TO SCHEDULE ONE FOR 11/19/2022 BETWEEN THE HOURS OF [phone]. APPOINTMENT IS AN OVER TO PHONE APPOINTMENT, SO PT WILL BE RECEIVING A CALL FROM . CALLED PT AT AND INFORMED HIM OF THE ABOVE INFORMATION.
== END 2022-11-01 18:15 | disposition home or self-care (01) | DRG 463 ==
LOC: MED 15:58 → MTU 18:15
PROVIDERS: ADMIT Internal Medicine; ATTEND Internal Medicine
PROC: BT1F1ZZ Fluoroscopy of Left Kidney, Ureter and Bladder using Low Osmolar Contrast (ICD-10-PCS; 2022-10-29)
PROC: 0T778DZ Dilation of Left Ureter with Intraluminal Device, Via Natural or Artificial Opening Endoscopic (ICD-10-PCS; principal; 2022-10-29 16:30)
DX: N13.6 Pyonephrosis (principal); I50.33 Acute on chronic diastolic (congestive) heart failure; N17.9 Acute kidney failure, unspecified; R65.10 Systemic inflammatory response syndrome (SIRS) of non-infectious origin without acute organ dysfunction; I11.0 Hypertensive heart disease with heart failure; Z20.822 Contact with and (suspected) exposure to COVID-19; E78.5 Hyperlipidemia, unspecified; E03.9 Hypothyroidism, unspecified; E11.9 Type 2 diabetes mellitus without complications; Z87.442 Personal history of urinary calculi; Z85.528 Personal history of other malignant neoplasm of kidney; Z90.5 Acquired absence of kidney
CPT/HCPCS: 36415; 36600; 71045; 74420; 76770; 80048; 80053; 81001; 82803; 82948; 83690; 83735; 83880; 84100; 84484; 85025; 87040; 87081; 87086; 93005; 96365; 96375; 99285; C1758; C1769; J0360; J0690; J0696; J1885; J1940; J2250; J2270; J3010; J3475; J7030; J7060; Q0092